=== PATIENT | male | born 1980 | race Caucasian/White ===

== ENCOUNTER 2018-04-13 15:23 | Emergency (ER) | payer OTHER ==
[2018-04-13] MEDS: KETOROLAC 30 MG INJ IM (19:46)
== END 2018-04-13 23:23 | disposition home or self-care (01) ==
LOC: FTE 15:23
DX: S99.911A Unspecified injury of right ankle, initial encounter (principal); W18.30XA Fall on same level, unspecified, initial encounter; Y92.89 Other specified places as the place of occurrence of the external cause
CPT/HCPCS: 72100; 73562; 73610-RT; 73630; 96372; 99284-25